=== PATIENT | male | born 1970 | race Caucasian/White ===

== ENCOUNTER 2017-08-15 15:57 | Emergency (ER) | payer OTHER ==
[~2017-08-15] VITALS: Ht 157.5 cm; Wt 98.2 kg
[2017-08-15 17:49] LABS: BASOPHIL COUNT 0.1 K/uL (0-0.1); EOSINOPHIL (%) 1.7 % (0-5); EOSINOPHIL COUNT 0.2 K/uL (0-0.3); HEMATOCRIT 47.1 % (38.0-50.0); IMMATURE GRANULOCYTE (%) 0.4 % (0.0-0.7); IMMATURE GRANULOCYTE COUNT 0.1 K/uL; INSTRUMENT ABS NEUTROPHIL CT 8.3 K/uL; LYMPHOCYTE COUNT 1.8 K/uL (1.0-2.8); MCH 30.6 PG (29.0-34.0); MCHC 34.2 G/DL (30.0-36.0); MCV 89.5 FL (86-99); MEAN PLAT.VOLUME 9.5 uM^3 (9.0-12.4); NEUTROPHIL (%) 72.2 % (45-76); NEUTROPHIL COUNT 8.3 K/uL (1.8-6.4); PLATELET COUNT 245 K/uL (156-360); RBC DIS.WIDTH-CV 13.1 % (11.8-14.6); RBC DIS.WIDTH-SD 42.7 % (39-53); RED BLOOD COUNT 5.26 M/uL (4.00-5.50); WHITE BLOOD COUNT 11.4 K/uL (4.1-10.2)
[2017-08-15 17:57] LABS: CHLORIDE 101 mEq/L (99-109); POTASSIUM 4.1 mEq/L (3.7-5.4); SODIUM 137 mEq/L (136-147)
[2017-08-15 17:58] LABS: GLUCOSE 90 mg/dL (70-99)
[2017-08-15 18:00] LABS: ANION GAP 12 MEQ/L (2-14)
[2017-08-15 18:02] LABS: GFR ESTIMATE (CALCULATED) > 59 mL/min/
[2017-08-15 18:03] LABS: UREA NITROGEN (BUN) 12 mg/dL (9-23)
[2017-08-15] MEDS ORDERED: BACTRIM,SEPT1 TABLET PO (18:23)
[2017-08-15] MEDS ORDERED: PERCOCET 5/31 TABLET PO (19:07)
[2017-08-15 19:21] VITALS: BP 135/90
[2017-08-18] MEDS ORDERED: BACTRIM,SEPT1 TABLET PO (14:53)
== END 2017-08-15 19:22 | disposition home or self-care (01) ==
LOC: EME 15:57
PROVIDERS: Physician Assistant
DX: L03.114 Cellulitis of left upper limb (principal); F17.200 Nicotine dependence, unspecified, uncomplicated
CPT/HCPCS: 80048; 83605; 85025; 87040; 99281; 99284; J0696; J7050

== ENCOUNTER 2018-05-29 05:26 | Emergency (ER) | payer OTHER ==
[~2018-05-29] VITALS: Ht 157.5 cm; Wt 102.1 kg
[~2018-05-29 05:26] MED LIST: BACTRIM,SEPT1 TABLET PO; PERCOCET 5/31 TABLET PO
[2018-05-29 06:43] LABS: HEMATOCRIT 41.3 % (38.0-50.0); HEMOGLOBIN 14.3 G/DL (12.5-16.6); MCH 30.7 PG (29.0-34.0); MCHC 34.6 G/DL (30.0-36.0); MCV 88.6 FL (86-99); PLATELET COUNT 208 K/uL (156-360); RBC DIS.WIDTH-CV 13.3 % (11.8-14.6); RED BLOOD COUNT 4.66 M/uL (4.00-5.50); WHITE BLOOD COUNT 16.2 K/uL (4.1-10.2)
[2018-05-29 07:06] LABS: ALBUMIN 3.9 G/DL (3.2-4.8); CHLORIDE 99 MEQ/L (99-109); POTASSIUM 3.4 MEQ/L (3.7-5.4); SODIUM 132 MEQ/L (136-147); TOTAL BILIRUBIN 0.6 MG/DL (0.0-1.0)
[2018-05-29 07:12] LABS: ALKALINE PHOSPHATASE 65 IU/L (3-129); ALT (GPT) 12 IU/L (3-49); AST (GOT) 27 IU/L (2-34); GFR ESTIMATE (CALCULATED) > 59 mL/min/ (58.99-99999); GLUCOSE 122 mg/dL (70-99); LIPASE 32 U/L (1.0-51.0); TOTAL PROTEIN 6.9 G/DL (6.4-8.3); UREA NITROGEN (BUN) 17 mg/dL (9-23)
[2018-05-29 08:29] VITALS: BP 103/83
[2018-05-30] MEDS ORDERED: TYLENOL EXTRA500 MG PO (10:47)
== END 2018-05-29 10:38 | disposition home or self-care (01) ==
LOC: EME 05:26
PROVIDERS: Emergency Medicine
DX: L03.115 Cellulitis of right lower limb (principal); I89.0 Lymphedema, not elsewhere classified; E87.1 Hypo-osmolality and hyponatremia; E87.6 Hypokalemia; R60.0 Localized edema; F17.200 Nicotine dependence, unspecified, uncomplicated
CPT/HCPCS: 80053; 83605; 83690; 85027; 87040; 93971; 99281; 99285; J0696; J3370

== ENCOUNTER 2018-05-30 01:37 | Inpatient (IN) | payer OTHER ==
[~2018-05-30] VITALS: Ht 157.5 cm; Wt 102.1 kg
[2018-05-30 02:57] LABS: HEMATOCRIT 39.3 % (38.0-50.0); HEMOGLOBIN 13.9 G/DL (12.5-16.6); MCH 31.2 PG (29.0-34.0); MCHC 35.4 G/DL (30.0-36.0); MCV 88.3 FL (86-99); PLATELET COUNT 180 K/uL (156-360); RBC DIS.WIDTH-CV 13.4 % (11.8-14.6); RBC DIS.WIDTH-SD 43.4 % (39-53); RED BLOOD COUNT 4.45 M/uL (4.00-5.50); WHITE BLOOD COUNT 18.1 K/uL (4.1-10.2)
[2018-05-30 03:42] LABS: CHLORIDE 96 mEq/L (99-109); POTASSIUM 3.6 mEq/L (3.7-5.4); SODIUM 128 mEq/L (136-147)
[2018-05-30 03:43] LABS: GLUCOSE 97 mg/dL (70-99)
[2018-05-30 03:47] LABS: GFR ESTIMATE (CALCULATED) > 59 mL/min/ (58.99-99999)
[2018-05-30 03:48] LABS: UREA NITROGEN (BUN) 13 mg/dL (9-23)
[2018-05-30 06:21] VITALS: BP 155/76
[2018-05-30 07:10] VITALS: BP 153/93
[2018-05-30] MEDS ORDERED: TYLENOL EXTRA500 MG PO (10:47)
[2018-05-30 11:15] VITALS: BP 130/60
[2018-05-30 14:27] LABS: CHLORIDE 101 MEQ/L (99-109); GFR ESTIMATE (CALCULATED) > 59 mL/min/ (58.99-99999); GLUCOSE 93 mg/dL (70-99); POTASSIUM 3.6 MEQ/L (3.7-5.4); SODIUM 131 MEQ/L (136-147); UREA NITROGEN (BUN) 12 mg/dL (9-23)
[2018-05-30 15:12] VITALS: BP 151/82
[2018-05-30 19:07] VITALS: BP 162/82
[2018-05-31 00:13] VITALS: BP 132/81
[2018-05-31 03:34] VITALS: BP 127/81
[2018-05-31 05:53] LABS: BASOPHIL (%) 0.2 % (0-1); EOSINOPHIL (%) 0.1 % (0-5); HEMATOCRIT 41.2 % (38.0-50.0); HEMOGLOBIN 14.1 G/DL (12.5-16.6); IMMATURE GRANULOCYTE (%) 0.6 % (0.0-0.7); LYMPHOCYTE (%) 4.8 % (15-42); LYMPHOCYTE COUNT 0.7 K/uL (1.0-2.8); MCH 30.6 PG (29.0-34.0); MCHC 34.2 G/DL (30.0-36.0); MCV 89.4 FL (86-99); MONOCYTE (%) 3.7 % (3-12); MONOCYTE COUNT 0.5 K/uL (0-0.8); NEUTROPHIL (%) 90.6 % (45-76); NEUTROPHIL COUNT 12.6 K/uL (1.8-6.4); PLATELET COUNT 178 K/uL (156-360); RBC DIS.WIDTH-CV 13.9 % (11.8-14.6); RED BLOOD COUNT 4.61 M/uL (4.00-5.50); WHITE BLOOD COUNT 13.9 K/uL (4.1-10.2)
[2018-05-31 06:18] LABS: CHLORIDE 102 MEQ/L (99-109); CREATININE 0.9 MG/DL (0.6-1.3); GFR ESTIMATE (CALCULATED) > 59 mL/min/ (58.99-99999); GLUCOSE 97 mg/dL (70-99); POTASSIUM 4.1 MEQ/L (3.7-5.4); SODIUM 133 MEQ/L (136-147); UREA NITROGEN (BUN) 9 mg/dL (9-23)
[2018-05-31 07:43] VITALS: BP 132/73
[2018-05-31 09:23] LABS: HEMOGLOBIN A1c (GLYCOHEMOGLOB) 5.2 % (Below 5.7)
[2018-05-31 20:19] VITALS: BP 118/64
[2018-06-01 00:53] VITALS: BP 94/72
[2018-06-01 03:56] VITALS: BP 124/78
[2018-06-01 08:00] VITALS: BP 141/81
[2018-06-01 08:34] LABS: HEMATOCRIT 35.1 % (38.0-50.0); MCH 30.8 PG (29.0-34.0); MCHC 34.5 G/DL (30.0-36.0); MCV 89.3 FL (86-99); PLATELET COUNT 157 K/uL (156-360); RBC DIS.WIDTH-SD 46.1 % (39-53); RED BLOOD COUNT 3.93 M/uL (4.00-5.50); WHITE BLOOD COUNT 8.1 K/uL (4.1-10.2)
[2018-06-01 08:44] LABS: HEMOGLOBIN 12.1 G/DL (12.5-16.6)
== END 2018-06-01 13:21 | disposition left against medical advice (07) | DRG 603 ==
LOC: EME → EDBD 01:37 → EDOF 04:51 → 5SOUTH 04:51
PROVIDERS: Emergency Medicine; Internal Medicine; Physician Assistant; Student in an Organized Health Care Education/Training Program
DX: L03.115 Cellulitis of right lower limb (principal); E87.1 Hypo-osmolality and hyponatremia; I89.0 Lymphedema, not elsewhere classified; B35.3 Tinea pedis; I87.2 Venous insufficiency (chronic) (peripheral); I87.8 Other specified disorders of veins; E66.01 Morbid (severe) obesity due to excess calories; Z68.41 Body mass index [BMI] 40.0-44.9, adult; R00.0 Tachycardia, unspecified; Z22.322 Carrier or suspected carrier of Methicillin resistant Staphylococcus aureus; R60.0 Localized edema; F17.210 Nicotine dependence, cigarettes, uncomplicated
CPT/HCPCS: 73610; 73630; 80048; 80048 91; 80053; 80202; 83036; 83605; 83690; 85025; 85027; 87040; 87641; 93971; 99281; 99285; J0295; J0696; J1650; J2543; J3370; J7030; J7050